=== PATIENT | male | born 1955 | race Caucasian/White ===

== ENCOUNTER 2017-06-09 10:16 | Emergency (ER) | payer BC ==
[~2017-06-09] VITALS: Ht 177.8 cm; Wt 81.7 kg
[2017-06-09] MEDS ORDERED: IBUP800 PO (12:39)
[2017-06-09] MEDS ORDERED: Zofran Odt4 MG SL (12:39)
[2017-06-09] MEDS ORDERED: Norco 10-325 T1 EACH PO (12:39)
[2017-06-09] MEDS ORDERED: CEPH500 PO (12:39)
== END 2017-06-09 13:55 | disposition home or self-care (01) ==
LOC: ER 10:16
DX: S81.811A Laceration without foreign body, right lower leg, initial encounter (principal); Z88.5 Allergy status to narcotic agent; Z98.890 Other specified postprocedural states; Z87.891 Personal history of nicotine dependence; W01.10XA Fall on same level from slipping, tripping and stumbling with subsequent striking against unspecified object, initial encounter
CPT/HCPCS: 13121; 13122; 90471; 90714; 96374; 99283; J0690

== ENCOUNTER 2019-04-06 08:58 | Day surgery (SDC) | payer MEDICARE ==
[~2019-04-06] VITALS: Ht 177.8 cm; Wt 80.8 kg
[~2019-04-06 08:58] MED LIST: ASPI325EC PO; CENTRUM SILVER1 EAC2 PO; CEPH500 PO; IBUP800 PO; Norco 10-325 T1 EACH PO; Zofran Odt4 MG SL
== END 2019-04-06 11:52 | disposition home or self-care (01) ==
LOC: ORSCSDS 08:58
PROVIDERS: Surgery
PROC: 0DBL8ZX Excision of Transverse Colon, Via Natural or Artificial Opening Endoscopic, Diagnostic (ICD-10-PCS; principal; 2019-04-06 10:30)
PROC: 0DBP8ZX Excision of Rectum, Via Natural or Artificial Opening Endoscopic, Diagnostic (ICD-10-PCS; principal; 2019-04-06 10:30)
PROC: 0DBM8ZX Excision of Descending Colon, Via Natural or Artificial Opening Endoscopic, Diagnostic (ICD-10-PCS; principal; 2019-04-06 10:30)
PROC: 0DBH8ZX Excision of Cecum, Via Natural or Artificial Opening Endoscopic, Diagnostic (ICD-10-PCS; principal; 2019-04-06 10:30)
DX: Z12.11 Encounter for screening for malignant neoplasm of colon (principal); Z86.010 Personal history of colon polyps; K63.5 Polyp of colon; D12.3 Benign neoplasm of transverse colon; D12.4 Benign neoplasm of descending colon; K62.1 Rectal polyp; E78.00 Pure hypercholesterolemia, unspecified; Z87.891 Personal history of nicotine dependence; Z79.82 Long term (current) use of aspirin; Z79.899 Other long term (current) drug therapy
CPT/HCPCS: 88305; J2704; J7120

== ENCOUNTER 2022-05-28 10:33 | Day surgery (SDC) | payer MEDICARE ==
[~2022-05-28] VITALS: Ht 180.3 cm; Wt 75.8 kg
[2022-05-28] MEDS ORDERED: ATOR10 (11:19)
== END 2022-05-28 12:53 | disposition home or self-care (01) ==
LOC: ORSCSDS 10:33
PROVIDERS: Surgery
PROC: 0DBM8ZX Excision of Descending Colon, Via Natural or Artificial Opening Endoscopic, Diagnostic (ICD-10-PCS; principal; 2022-05-28 11:45)
PROC: 0DBK8ZX Excision of Ascending Colon, Via Natural or Artificial Opening Endoscopic, Diagnostic (ICD-10-PCS; principal; 2022-05-28 11:45)
DX: Z12.11 Encounter for screening for malignant neoplasm of colon (principal); Z86.010 Personal history of colon polyps; D12.2 Benign neoplasm of ascending colon; D12.4 Benign neoplasm of descending colon; E78.00 Pure hypercholesterolemia, unspecified; Z79.899 Other long term (current) drug therapy
CPT/HCPCS: 88305; J0330; J2001; J2405; J2704; J7120